=== PATIENT | female | born 2000 | race Caucasian/White ===

== ENCOUNTER → 2020-04-21 | Emergency (ER) | payer MEDICAID, OTHER ==
[~2020-04-21] VITALS: Ht 162.6 cm; Wt 62.6 kg
[~2020-04-21] MED LIST: KETOROLAC TROMETH 60MG/2ML VIAL IM ONE
[2020-04-21 09:37] VITALS: BP 116/71
[2020-04-21 10:12] LABS: Urine Bacteria FEW /hpf (None Seen); Urine Blood Negative /uL (Negative); Urine Mucus FEW (None Seen); Urine Specific Gravity 1.023 (1.001-1.035); Urine WBC 2 /hpf (0 - 5)
[2020-04-21 10:36] LABS: Basophils # (auto) 0 10 ^3/uL (0-0.2); Basophils % (auto) 0.7 % (0.0-2.0); Eosinophils # (auto) 0.1 10 ^3/uL (0-0.8); Hematocrit 40.6 % (36.0-46.0); Hemoglobin 13.7 g/dL (12.2-16.2); Lymphocytes # (auto) 1.8 10 ^3/uL (0.4-5.4); Mean Corpuscular Hemoglobin 33.6 pg (28.0-32.0); Mean Corpuscular Hgb Conc. 33.8 g/dL (32.0-36.0); Mean Corpuscular Volume 99.6 fL (80.0-100.0); Monocytes # (auto) 0.5 10 ^3/uL (0-1.3); Monocytes % (auto) 6.7 % (0.0-12.0); Neutrophils # (auto) 4.5 10 ^3/uL (1.6-8.6); Neutrophils % (auto) 65.6 % (37.0-80.0); Nucleated Red Blood Cells % 0.1 %; Platelet Count (auto) 239 10^3/uL (140-450); Red Blood Cells 4.07 10^6/uL (4.0-5.20); Red Cell Distribution Width 12.3 % (11.8-14.3); White Blood Cell 6.8 10^3/uL (4.4-10.8)
[2020-04-21 10:47] LABS: Albumin 4.1 g/dL (3.4-5.0); Calcium 8.6 mg/dL (8.5-10.1); Potassium 3.6 mmol/L (3.5-5.1)
[2020-04-21 10:51] LABS: BUN/Creatinine Ratio 9.5; Bilirubin, Total 0.4 mg/dL (0.2-1.0); Total Protein 7.3 g/dL (6.4-8.2)
== END | disposition home or self-care (01) ==
LOC: ER 09:24
DX: E86.0 Dehydration (principal); N83.202 Unspecified ovarian cyst, left side; R10.84 Generalized abdominal pain
CPT/HCPCS: 36415; 74176; 80053; 81001; 83690; 85025

== ENCOUNTER 2023-04-30 12:29 | Emergency (ER) | payer MEDICAID ==
[~2023-04-30] VITALS: Ht 162.6 cm; Wt 68.0 kg
[2023-04-30 13:04] LABS: Basophils # (auto) 0.1 10 ^3/uL (0-0.2); Basophils % (auto) 0.8 % (0.0-2.0); Eosinophils # (auto) 0 10 ^3/uL (0-0.8); Eosinophils % (auto) 0.6 % (0.0-7.0); Hematocrit 39.2 % (36.0-46.0); Hemoglobin 13.5 g/dL (12.2-16.2); Lymphocytes # (auto) 1.6 10 ^3/uL (0.4-5.4); Lymphocytes % (auto) 23.3 % (10.0-50.0); Mean Corpuscular Hemoglobin 33.4 pg (28.0-32.0); Mean Corpuscular Hgb Conc. 34.3 g/dL (32.0-36.0); Mean Corpuscular Volume 97.4 fL (80.0-100.0); Monocytes # (auto) 0.4 10 ^3/uL (0-1.3); Monocytes % (auto) 6.4 % (0.0-12.0); Neutrophils # (auto) 4.8 10 ^3/uL (1.6-8.6); Neutrophils % (auto) 68.9 % (37.0-80.0); Red Blood Cells 4.03 10^6/uL (4.0-5.20); Red Cell Distribution Width 12.6 % (11.8-14.3); White Blood Cell 6.9 10^3/uL (4.4-10.8)
[2023-04-30 13:19] LABS: Alanine Aminotransferase 12 U/L (7-40); Albumin 4.9 g/dL (3.2-4.8); Alkaline Phosphatase 33 U/L (46-116); Anion Gap 5.3 (5-15); Aspartate Aminotransferase 9 U/L (13-40); BUN/Creatinine Ratio 7.4 (10.0-20.0); Bilirubin, Total 0.5 mg/dL (0.2-1.0); Blood Urea Nitrogen 7 mg/dL (9-23); Calcium 9.7 mg/dL (8.5-10.1); Carbon Dioxide 26.7 mmol/L (20-30); Chloride 108 mmol/L (98-107); Glucose 99 mg/dL (74-106); Potassium 4.1 mmol/L (3.5-5.1); Sodium 140 mmol/L (136-145); Total Protein 7.3 g/dL (5.7-8.2)
[2023-04-30 14:53] VITALS: BP 113/74; PULSE 48; RESP 18; TEMP 98.2; O2SAT 99
[2023-04-30 15:06] LABS: Urine Bacteria FEW /hpf (None Seen); Urine Blood 3+ /uL (Negative); Urine Clarity Clear (Clear); Urine Color Yellow (Yellow); Urine Mucus FEW (None Seen); Urine Protein, UAD Negative (Negative); Urine Specific Gravity 1.019 (1.001-1.035); Urine Urobilinogen Normal (Negative); Urine WBC 4 /hpf (0 - 5)
[2023-04-30 15:14] LABS: Amphetamine Screen, Urine Neg (NEGATIVE); Barbiturate Scree,Urine Neg (NEGATIVE); Benzodiazephine Screen, Urine Neg (NEGATIVE); Cannabinoid Screen, Urine Pos (NEGATIVE); Cocaine Screen, Urine Neg (NEGATIVE); Opiate Scree,Urine Neg (NEGATIVE); Phencyclidine Screen, Urine Neg (NEGATIVE)
== END 2023-04-30 14:54 | disposition home or self-care (01) ==
LOC: ER 12:29
DX: R07.89 Other chest pain (principal)
CPT/HCPCS: 36415; 71046; 80053; 80307; 81001; 84484; 85025; 93005